=== PATIENT | female | born 1980 | race African-American/Black ===

== ENCOUNTER → 2017-07-05 | Outpatient (CLI) | payer MEDICARE, OTHER ==
[~2017-07-05] MED LIST: AZATHIOPRINE50 M2 PO; BACTROBAN15 GM TOP; CERTAGEN PO; CLINDAMYCIN HC300 MG PO; FEOSOL PO; FLEXERIL PO; FLONASE ALLERG9.9 ML; LORTAB 7.5-5001 TAB PO; LUNESTA PO; LYRICA300 MG PO; MEDROL PO; MOVANTIK25 MG PO; NORVASC PO; OPANA ER30 MG PO; PERCOCET 10/31 UDTA1 PO; PLAQUENIL200 MG PO; PREDNISONE PO; SYMBICORT 16010.2 GM INH; TYLOX 5/500 CAP1 CAP PO; VICODIN PO; [UNRECOGNIZED DRUG - OTHER]
--- NOTE | ~2017-07-05 | US77 ---
[facility] A Service of [facility] RADIOLOGY TEXT RESULTS PATIENT: XIN ARANDA LOCATION: [facility] : 80 UNIT #: [id number] AGE: [address]: Jose Eagle MD SEX: F ORDER DR: [id number] [facility] [address] [place], [place] [address] [id number] O MR#: [id number] Acc #: [id number] NAME: XIN ARANDA : 1980 SEX: F STUDY DATE/TIME: 07/05/2017 12:34 UNIT: [facility] ROOM: STUDY DESCRIPTION: US Kidney Bilateral Complete Attending Physician: Jose Eagle M.D. Referring Physician: Jose Eagle M.D. Ordering Physician: Jose Eagle M.D. Primary Care Physician: [facility] MEDICAL IMAGING REPORT This report is preliminary unless electronic signature is present EXAM Bilateral complete renal ultrasound. COMPARISON None. INDICATIONS 36-year-old female with microscopic hematuria since December 12, 2016. History of lupus. FINDINGS Right kidney is normal in size. There is no right hydronephrosis. There is normal right renal cortical thickness. Right renal cortex is isoechoic to the liver. Color flow is demonstrated within the right kidney. There is suggestion of a nonobstructing mildly shadowing calculus inferior pole of the right kidney measuring 8 mm x 6 mm x 6 mm. Evaluation of the urinary bladder is limited by under distension. Left kidney is normal in size and cortical thickness. No left hydronephrosis. There is color flow within the left kidney. No focal lesions of the left kidney. IMPRESSION 1. Questionable calculus versus focal echogenicity of renal sinus fat in inferior pole right kidney. No evidence of hydronephrosis. Normal size, cortical thickness of both kidneys. 2. No abnormality of the bladder is seen. Evaluation is limited due to under distension. Dictated by... Prakash Jasso M.D. THIS IS AN ELECTRONICALLY VERIFIED REPORT Prakash Jasso M.D. at 07/11/2017 1:06 PM BLM/gz STS. [facility] A Service of [facility] RADIOLOGY TEXT RESULTS PATIENT: XIN ARANDA LOCATION: [facility] #: [id number] : [birth year] UNIT #: [id number] AGE: [address]: Jose Eagle MD SEX: F ORDER DR: TD: 07/06/2017 06:44 JOB #: [id number] MEDICAL IMAGING REPORT Page 1 of 1 COPY
== END | disposition home or self-care (01) ==
LOC: CGUS 12:05
DX: R31.9 Hematuria, unspecified (principal)
CPT/HCPCS: 76770